=== PATIENT | male | born 1950 | race Caucasian/White ===

== ENCOUNTER 2018-10-09 13:39 | Outpatient (CLI) | payer MEDICARE ==
[~2018-10-09 13:39] MED LIST: ATOR40TA78 PO; LISI40TA PO; METO200T47 PO; WARF4TAB65 PO; WARF6TAB47 PO
== END 2018-10-09 23:59 | disposition home or self-care (01) ==
LOC: CVU 13:39
PROVIDERS: ATTEND Internal Medicine Cardiovascular Disease
DX: I08.0 Rheumatic disorders of both mitral and aortic valves (principal); E78.2 Mixed hyperlipidemia; I10 Essential (primary) hypertension; I48.91 Unspecified atrial fibrillation
CPT/HCPCS: 93306; 93880

== ENCOUNTER → 2019-09-10 | Outpatient (CLI) | payer MEDICARE | END | disposition home or self-care (01) | LOC: CFH 09-07 12:32 | PROVIDERS: ATTEND Family Medicine | DX: N44.2 Benign cyst of testis (principal); R19.00 Intra-abdominal and pelvic swelling, mass and lump, unspecified site; I86.1 Scrotal varices | CPT/HCPCS: 76870 ==